=== PATIENT | male | born 1960 | race Caucasian/White ===

== ENCOUNTER 2020-09-24 11:25 | Emergency (ER) | payer MEDICAID ==
[~2020-09-24] VITALS: Ht 180.3 cm; Wt 93.0 kg
--- NOTE | 2020-09-24 11:44 | Emergency Room Report ---
History of Present Illness General Chief Complaint: Seizure Source: Patient - when awake, EMS Present Illness HPI Patient presents via EMS after having 2 seizures. One was not witnessed by paramedics. It was reported at 1052. Patient was able to ambulate to the gurney and sit down but did not give his name. He was not fully oriented at that time. He had a second seizure that required 2 doses of IM Versed to control in the field both were 5 mg each. Those around the patient he has been drinking alcohol. Accu-Chek in the field was 147. No further history is available at this time. Later patient gives h/o prior seizures with non-compliance. H/O R inguinal hernia Allergies: Coded Allergies: No Known Allergies (Unverified , 09/24/20) COVID-19 Screening Contact w/high risk pt: No Experienced COVID-19 symptoms?: No COVID-19 Testing performed MAINTENANCE TEAM LEADER: No Patient History Past Medical History: see triage record Social History: Reports: alcohol use Social History Narrative born [facility], [place] - staying at [facility] Reviewed Nursing Documentation: PMH: Agreed; PSxH: Agreed Nursing Documentation-PMH Past Medical History: No History, Except For Hx Seizures: Yes Review of Systems All Other Systems: limited Physical Exam Vital Signs Date Time Temp Pulse Resp B/P (MAP) Pulse Ox O2 Delivery O2 Flow Rate FiO2 09/24/20 11:24 98.8 115 20 129/81 (97) 95 Room Air Sp02 EP Interpretation: reviewed, normal General Appearance: no apparent distress, other - sedated from Versed, not follow commands Eyes: bilateral eye PERRL, bilateral eye Scleral Injection ENT: moist mucus membranes - no lingual trauma, other - + gag Neck: supple Respiratory: lungs clear, normal breath sounds Cardiovascular #1: regular rate, rhythm Cardiovascular #2: 2+ radial (R) Gastrointestinal: non tender, no mass, non-distended, decreased bowel sounds Genitourinary: no CVA tenderness Musculoskeletal: back normal, moves extm spontaneously Neurologic: other - withdraws to pain all 4, questionable toe response Psychiatric: other - sedated from Versed Skin: no rash, warm/dry, other - dishevelled Medical Decision Making Diagnostic Impression: Primary Impression: Seizures Additional Impressions: Alcohol abuse Alcohol withdrawal Qualified Codes: F10.239 - Alcohol dependence with withdrawal, unspecified ER Course Patient presents with 2 seizures 20 minutes apart with partially regaining consciousness but not fully to orientation and then receiving 10 mg of Versed in the field. Differential includes breakthrough seizure, new onset seizure, brain bleed, withdrawal seizure amongst others. Accu-Chek in the field was good. Patient is not seizing at this time. Because there were 2 seizures Keppra will be administered. Admission work-up needs to be done with EKG, chest x-ray, CT of the head and labs. Patient is placed on front desk monitor and seizure precautions are undertaken. EKG no injury. CXR with increased wayne bilateral bases. Labs with decreased WBC, platelets, increased LFTs. Bal = 101 No more seizure activity. More history obtained (and added to HPI). Discussed with Dr. Telles who accepts patient. Patient tremulous. Ativan given. Risk of DTs or withdrawal. Thiamine given. Not delusional. Improved after Ativan. Patient stable for transfer. Laboratory Tests Test 09/24/20 11:50 09/24/20 15:35 White Blood Count 3.1 K/UL (4.8-10.8) L Red Blood Count 4.06 M/UL (4.70-6.10) L Hemoglobin 12.4 G/DL (14.2-18.0) L Hematocrit 37.9 % (42.0-52.0) L Mean Corpuscular Volume 93 FL (80-99) Mean Corpuscular Hemoglobin 30.4 PG (27.0-31.0) Mean Corpuscular Hemoglobin Concent 32.6 G/DL (32.0-36.0) Red Cell Distribution Width 15.6 % (11.6-14.8) H Platelet Count 71 K/UL (150-450) L Mean Platelet Volume 8.7 FL (6.5-10.1) Neutrophils (%) (Auto) % (45.0-75.0) Lymphocytes (%) (Auto) % (20.0-45.0) Monocytes (%) (Auto) % (1.0-10.0) Eosinophils (%) (Auto) % (0.0-3.0) Basophils (%) (Auto) % (0.0-2.0) Differential Total Cells Counted 100 Neutrophils % (Manual) 75 % (45-75) Lymphocytes % (Manual) 21 % (20-45) Monocytes % (Manual) 4 % (1-10) Eosinophils % (Manual) 0 % (0-3) Basophils % (Manual) 0 % (0-2) Band Neutrophils 0 % (0-8) Platelet Estimate Decreased L Platelet Morphology Normal Anisocytosis 1+ Urine Color Yellow Urine Appearance Clear Urine pH 6 (4.5-8.0) Urine Specific Masterson 1.020 (1.005-1.035) Urine Protein 3+ (NEGATIVE) H Urine Glucose (UA) Negative (NEGATIVE) Urine Ketones 1+ (NEGATIVE) H Urine Blood 1+ (NEGATIVE) H Urine Nitrite Negative (NEGATIVE) Urine Bilirubin Negative (NEGATIVE) Urine Urobilinogen 12 MG/DL (0.0-1.0) H Urine Leukocyte Esterase 1+ (NEGATIVE) H Urine RBC 2-4 /HPF (0 - 0) H Urine WBC 0-2 /HPF (0 - 0) Urine Squamous Epithelial Cells None /LPF (NONE/OCC) Urine Bacteria Occasional /HPF (NONE) Sodium Level 139 MMOL/L (136-145) Potassium Level 3.6 MMOL/L (3.5-5.1) Chloride Level 101 MMOL/L (98-107) Carbon Dioxide Level 23 MMOL/L (21-32) Anion Gap 15 mmol/L (5-15) Blood Urea Nitrogen 9 mg/dL (7-18) Creatinine 1.0 MG/DL (0.55-1.30) Estimated Glomerular Filtration Rate > 60 mL/min (>60) Glucose Level 97 MG/DL (74-106) Calcium Level 8.2 MG/DL (8.5-10.1) L Total Bilirubin 0.8 MG/DL (0.2-1.0) Aspartate Amino Transferase (AST) 136 U/L (15-37) H Alanine Aminotransferase (ALT) 81 U/L (12-78) H Alkaline Phosphatase 125 U/L (46-116) H Total Creatine Kinase 286 U/L (26-308) Troponin I 0.004 ng/mL (0.000-0.056) Total Protein 7.3 G/DL (6.4-8.2) Albumin 3.6 G/DL (3.4-5.0) Globulin 3.7 g/dL Albumin/Globulin Ratio 1.0 (1.0-2.7) Salicylates Level 0.2 ug/mL (2.8-20) L Urine Opiates Screen Negative (NEGATIVE) Acetaminophen Level < 2 MCG/ML (10-30) L Urine Barbiturates Screen Negative (NEGATIVE) Phencyclidine (PCP) Screen Negative (NEGATIVE) Urine Amphetamines Screen Negative (NEGATIVE) Urine Benzodiazepines Screen Positive (NEGATIVE) H Urine Cocaine Screen Negative (NEGATIVE) Urine Marijuana (THC) Screen Positive (NEGATIVE) H Serum Alcohol 101 mg/dL Magnesium Level 1.9 MG/DL (1.8-2.4) EKG Diagnostic Results Rate: tachycardiac Rhythm: NSR ST Segments: no acute changes Rhythm Strip Diag. Results EP Interpretation: yes Rhythm: no PVC's, no ectopy, other - 110 Chest X-Ray Diagnostic Results Chest X-Ray Diagnostic Results : Chest X-Ray Ordered: Yes # of Views/Limited/Complete: 1 View Indication: Other EP Interpretation: Yes Interpretation: no effusion, no pneumothorax, other - increased wayne at bases CT/MRI/US Diagnostic Results CT/MRI/US Diagnostic Results : Imaging Test Ordered: head Impression no intracranial pathology Last Vital Signs Date Time Temp Pulse Resp B/P (MAP) Pulse Ox O2 Delivery O2 Flow Rate FiO2 09/24/20 19:47 98.0 102 18 137/78 98 Room Air Status: improved Disposition: [facility]TERM HOS[facility] - [place] Condition: Serious Scripts Unable to Obtain Active Prescriptions or Reported Meds Bacilio Lama MD Sep 24, 2020 11:43
[2020-09-24] MEDS ORDERED: levETIRAcetam 500mg/NS100ml 100 ML IV ONE (11:45)
--- NOTE | 2020-09-24 11:45 | NUR ---
ED Nurse Note: Pt was brought in by [facility] from a liquor store d/t witnessed seizure today, (+) etoh; found on the store holding some alcohol bottle. Per EMS another episode of sz witnessed en route, versed 10mg IM given. Pt is AOx3, asleep, VSS, HR's on 105-110BPM, breathing even and unlabored, afebrile on triage. Pt was placed on bed, seizure pads on rails, safety measures in placed, will continue to monitor.
[2020-09-24 12:00] VITALS: BP 129/81
[2020-09-24 12:23] LABS: HEMATOCRIT 37.9 % (42.0-52.0); HEMOGLOBIN 12.4 G/DL (14.2-18.0); MEAN CORPUSCULAR VOLUME 93 FL (80-99); PLATELET COUNT 71 K/UL (150-450); RED BLOOD COUNT 4.06 M/UL (4.70-6.10); RED CELL DISTRIBUTION WIDTH 15.6 % (11.6-14.8); WHITE BLOOD COUNT 3.1 K/UL (4.8-10.8)
[2020-09-24 12:33] LABS: APPEARANCE,URINE CLEAR; BILIRUBIN, URINE NEGATIVE (NEGATIVE); GLUCOSE, URINE (UA) NEGATIVE (NEGATIVE); KETONES,URINE 1+ (NEGATIVE); LEUKOCYTE ESTERASE ,URINE 1+ (NEGATIVE); NITRITE,URINE NEGATIVE (NEGATIVE); PH,URINE 6 (4.5-8.0); PROTEIN,URINE 3+ (NEGATIVE); UROBILINOGEN,URINE 12 MG/DL (0.0-1.0)
[2020-09-24 12:37] LABS: ANION GAP 15 mmol/L (5-15); BLOOD UREA NITROGEN 9 mg/dL (7-18); CALCIUM 8.2 MG/DL (8.5-10.1); CARBON DIOXIDE 23 MMOL/L (21-32); CHLORIDE 101 MMOL/L (98-107); POTASSIUM 3.6 MMOL/L (3.5-5.1); SODIUM 139 MMOL/L (136-145)
--- NOTE | 2020-09-24 12:40 | NUR ---
ED Nurse Note: Pt awake, responsive, cooperative to care, pt able to provide his information. accucheck taken with 70mg/dl result, notified ERMD, orange juice x2 offered.
[2020-09-24 12:41] LABS: ALANINE AMINOTRANSFERASE 81 U/L (12-78); ALBUMIN 3.6 G/DL (3.4-5.0); ALKALINE PHOSPHATASE 125 U/L (46-116); ASPARTATE AMINO TRANSFERASE 136 U/L (15-37); BILIRUBIN,TOTAL 0.8 MG/DL (0.2-1.0); COLOR,URINE YELLOW; CREATINE KINASE 286 U/L (26-308)
--- NOTE | 2020-09-24 12:51 | Diagnostic Imaging Report ---
FILM CXR 1 VIEW INDICATION: Seizure COMPARISON: None FINDINGS: Single frontal view demonstrates a normal cardiomediastinal silhouette. Interstitial prominence with lower lobe opacities. No pleural effusions. The visualized osseous structures are within normal limits. IMPRESSION: Interstitial prominence from inflammation or volume overload and lower lobe infiltrates
--- NOTE | 2020-09-24 13:05 | Diagnostic Imaging Report ---
CT HEAD Without Contrast HISTORY: Seizure TECHNIQUE: One or more of the following dose reduction techniques were used: automated exposure control, adjustment of the mA and/or kV according to patient size, use of iterative reconstruction technique. Axial CT images of the head obtained with coronal reconstructions. One or more of the following dose reduction techniques were used: automated exposure control, adjustment of the mA and/or kV according to patient size, use of iterative reconstruction technique. Total Exam volume computed tomography dose index (CTDIvol) = 53.4 mGy and Dose Length Product (DLP) = 1072.2 mGY-c COMPARISON: None FINDINGS: No intracranial hemorrhage, abnormal intra- or extra-axial collections or parenchymal lesions are seen. The shape and configuration of the cortical sulci, basal cisterns and ventricles are within normal limits. The jenkins-white differentiation is preserved. No evidence of mass effect, midline shift, or edema. The osseous structures are unremarkable. The visualized portions of the paranasal sinuses are clear. IMPRESSION: Negative non-contrast CT scan of the head.
[2020-09-24] MEDS ORDERED: Thiamine HCl 100 MG in D5W 55 ML IVPB STA (15:08)
[2020-09-24] MEDS ORDERED: LORazepam Inj 2mg/ml 1ml IV ONE (15:15)
--- NOTE | 2020-09-24 16:51 | NUR ---
REPORT GIVEN TO EZIO MINA AT [facility] WAITING FOR AMBULANCE TO TRANSPORT PATIENT
--- NOTE | 2020-09-24 19:11 | NUR ---
ED Nurse Note: Hand off given to LEOPOLDO Sweeney.
--- NOTE | 2020-09-24 19:12 | NUR ---
ED Nurse Note: Report received from MICHELLE MINA
--- NOTE | 2020-09-24 19:44 | NUR ---
ER DISCHARGE NOTE: Patient picked up by [facility] ambulance going to [facility] via BLS transport. Packet and report given to ambulance personnel. Patient is cleared to be transferred per ERMD, pt is aox4. pt id band and iv site endorsed without complications. pt transported safely to bed and transported to ambulance. pt took all belongings.
[2020-09-24 19:47] VITALS: BP 137/78
== END 2020-09-24 19:47 | disposition short-term general hospital (02) ==
LOC: EDBD 11:25 → EMR 11:55
DX: F10.239 Alcohol dependence with withdrawal, unspecified (principal); F10.20 Alcohol dependence, uncomplicated; G40.909 Epilepsy, unspecified, not intractable, without status epilepticus; Y90.2 Blood alcohol level of 40-59 mg/100 ml
CPT/HCPCS: 36415; 70450; 71045; 80053; 80307; 81003; 82550; 83735; 84484; 85007; 85025; 93005; 96365; 96375; G0480; G0481; J1953; J7040; Z7502; 99284